=== PATIENT | male | born 2000 | race African-American/Black ===

== ENCOUNTER 2020-10-02 10:36 | Emergency (ER) | payer SELFPAY ==
[2020-10-02] MEDS ORDERED: Bupivacaine 0.5% 10 ML VIAL ONE (11:37)
[2020-10-02] MEDS ORDERED: Lidocaine 1% PF 5 ML VIAL ONE (11:37)
== END 2020-10-02 12:03 | disposition home or self-care (01) ==
LOC: ERS 10:36
DX: K04.7 Periapical abscess without sinus (principal); J45.909 Unspecified asthma, uncomplicated; F17.210 Nicotine dependence, cigarettes, uncomplicated
CPT/HCPCS: 99282; J3490

== ENCOUNTER 2020-11-29 00:12 | Emergency (ER) | payer SELFPAY ==
[2020-11-29 00:51] LABS: Bacteria/HPF None Seen HPF (None Seen); Bilirubin Negative (Negative); Blood, Urine Negative (Negative); Clarity Clear (Clear); Glucose, Urine (Dipstick) Normal (Negative); Ketone, Urine Trace mg/dL (Negative); Leukocyte 500 Leu/uL (Negative); Mucous/LPF 1+ LPF (<2+); Nitrite Negative (Negative); Protein, Urine (Dipstick) 10 mg/dL (Neg-Trace); Specific Gravity, Urine 1.031 (1.002-1.036); Squamous Epithelial 0-3 HPF (0-3); WBC/HPF Greater than 50 HPF (0-3)
== END 2020-11-29 01:21 | disposition left against medical advice (07) ==
LOC: ERS 00:12
DX: Z53.21 Procedure and treatment not carried out due to patient leaving prior to being seen by health care provider (principal)
CPT/HCPCS: 81003; 81015; 87086

== ENCOUNTER 2020-11-29 16:32 | Emergency (ER) | payer SELFPAY ==
[2020-11-29 18:33] LABS: Bacteria/HPF None Seen HPF (None Seen); Bilirubin Negative (Negative); Blood, Urine 2+ (Negative); Clarity Clear (Clear); Glucose, Urine (Dipstick) Normal (Negative); Ketone, Urine Negative (Negative); Leukocyte 500 Leu/uL (Negative); Nitrite Negative (Negative); Protein, Urine (Dipstick) Negative (Neg-Trace); Specific Gravity, Urine 1.025 (1.002-1.036); Squamous Epithelial 0-3 HPF (0-3); WBC/HPF Greater than 50 HPF (0-3); pH, Urine 6.5 (5.0-9.0)
[2020-11-29] MEDS ORDERED: cefTRIAXone\\ROCEPHIN 500 MG VIAL ONE (20:17)
[2020-11-29] MEDS ORDERED: Lidocaine 1% PF 5 ML VIAL ONE (20:17)
[2020-11-29] MEDS ORDERED: Azithromycin 250 MG TAB ONE (20:17)
[2020-12-02 21:35] LABS: Chlam.trachomatis by PCR,Urine Not Detected (NotDetected)
== END 2020-11-29 20:55 | disposition home or self-care (01) ==
LOC: ERS 16:32
DX: N30.01 Acute cystitis with hematuria (principal); J45.909 Unspecified asthma, uncomplicated; F17.290 Nicotine dependence, other tobacco product, uncomplicated
CPT/HCPCS: 87086; 87491; 87591; 96372; 99283; J0696